=== PATIENT | male | born 1960 | race Caucasian/White ===

== ENCOUNTER → 2016-04-07 | Outpatient (CLI) | payer OTHER ==
--- NOTE | 2016-04-07 13:13 | DX ---
Bilateral Knees, Single View Each History: Knee pain. Findings: Single view only was obtained AP weightbearing of both knees. There is mild joint narrowing and subarticular sclerosis in the medial compartment of the right knee. Milder subarticular sclerosi s medial tibial plateau left knee but no significant joint narrowing. No evidence for periarticular e rosion. No evidence for fracture on this limited single view. 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
== END ==
LOC: CIMAGING 12:12
PROVIDERS: ATTEND Internal Medicine
DX: M17.0 Bilateral primary osteoarthritis of knee (principal)
CPT/HCPCS: 73565-PO